=== PATIENT | female | born 1975 | race Caucasian/White ===

== ENCOUNTER 2016-12-25 17:24 | Emergency (ER) | payer BC ==
[~2016-12-25] VITALS: Ht 172.7 cm; Wt 68.0 kg
[~2016-12-25 17:24] MED LIST: AMIT75TA2 PO; CLON1TAB PO; LAMO100 PO; NADO20TA PO; TRAM50TA PO
[2016-12-25 17:26] VITALS: BP 141/64; PULSE 64; RESP 15; TEMP 98.4; O2SAT 99
--- NOTE | 2016-12-25 17:50 | PD ---
Physical Exam Date Seen by Provider: Dec 25, 2016 Time Seen by Provider: 17:49 Narrative 41-year-old female presents the emergency department with sharp right quadrant pain intermittently since Thursday. Patient says the pain is about an 8 out of 10. She denies urinary symptoms. She denies nausea but has no appetite. No vomiting. No diarrhea. Urine is sent to the lab as well as urine test. Vitals are reviewed and patient was awaiting bed placement. Data Data Last Documented VS Vital Signs Date Time Temp Pulse Resp B/P (MAP) Pulse Ox O2 Delivery O2 Flow Rate FiO2 12/25/16 17:26 98.4 64 15 141/64 (89) 99 MDM Medical Record Reviewed: Yes Supervised Visit with SHANICE: Yes Condition: Stable [place] Stephen Dec 25, 2016 17:50
[2016-12-25] MEDS ORDERED: SODIUM CHLOR 0.9% 1000 ML INJ 1,000 ML IV SCH (18:35)
[2016-12-25] MEDS ORDERED: MORPHINE SULFATE 4 MG/ML INJ IV PUSH ONE ×2 (18:45→22:00)
[2016-12-25] MEDS ORDERED: ONDANSETRON HCL 4 MG/2 ML VIAL IVP ONE (18:45)
--- NOTE | 2016-12-25 19:13 | PD ---
HPI Chief Complaint: Abdominal Pain Time Seen by Provider: 18:27 Travel History International Travel<30 days: No Contact w/Intl Traveler<30days: No Traveled to known affect area: No History of Present Illness HPI 41-year-old female that presents to the ED for evaluation of abdominal pain. Patient states that she's had right lower quadrant abdominal pain since Thursday. Patient comes and goes and become sharp. Per patient progressively was getting worse and she's also been having nausea and vomiting. Per patient she cannot keep much down. She denies any history of this in the past. She denies any recent surgeries other than a 4 years ago. She states that her control was recently changed. No fevers chills or sweats. No chest pain or shortness of breath. Per patient the pain is 10 out of 10 when he gets more severe. She has not taken anything for this. She has not seen her doctor for this. She has an allergy to penicillin. Pain stays mainly in the right lower quadrant and does not radiate. Denies any history of kidney stones. No urinary symptoms or bowel movement issues. PFSH Past Medical History Medical History: Denies Significant Hx ?: Not LMP: AMEHIA CONTROL Past Surgical History Section: Yes Social History Alcohol Use: No Tobacco Use: Yes (pack a day) Substance Use: No Allergies-Medications (Allergen,Severity, Reaction): Coded Allergies: penicillin G (Unverified Allergy, Severe, 12/25/16) *MDRO Multi-Drug Resistant Organism (Verified Adverse Reaction, Unknown, ) MRSA (arm-02/21/16) Uncoded Allergies: ADHESIVE TAPE (Allergy, Severe, Rash, 02/03/13) Reported Meds & Prescriptions Reported Meds & Active Scripts Active Zofran (Ondansetron HCl) 4 Mg Tab 4 Mg PO Q6HR PRN Lortab (Hydrocodone-Acetaminophen) 5-325 Mg Tab 1 Tab PO Q6H PRN Clonazepam 1 Mg Tab 1 Mg PO TID Tramadol (Tramadol HCl) 50 Mg Tab 100 Mg PO Q8HR PRN Nadolol 20 Mg Tab 20 Mg PO DAILY Lamictal (Lamotrigine) 100 Mg Tab 50 Mg PO BID Cut pill in half. Take 1/2 tab twice a day Review of Systems Except as stated in HPI: all other systems reviewed are Neg Physical Exam Narrative GENERAL: SKIN: Warm and dry. HEAD: Atraumatic. Normocephalic. EYES: Pupils equal and round. No scleral icterus. No injection or drainage. ENT: No nasal bleeding or discharge. Mucous membranes pink and moist. Tongue is midline. No uvula deviation. NECK: Trachea midline. No JVD. CARDIOVASCULAR: Regular rate and rhythm. No murmurs, S3, S4. RESPIRATORY: No accessory muscle use. Clear to auscultation. Breath sounds equal bilaterally. GASTROINTESTINAL: Abdomen soft, pain with touch in the right lower quadrant especially with deep palpation, nondistended. Hepatic and splenic margins not palpable. MUSCULOSKELETAL: Extremities without clubbing, cyanosis, or edema. No obvious deformities. Full range of motion of the upper and lower extremities bilaterally. 2+ pulses bilaterally. NEUROLOGICAL: Awake and alert. No obvious cranial nerve deficits. Motor grossly within normal limits. Five out of 5 muscle strength in the arms and legs. Normal speech. PSYCHIATRIC: Appropriate mood and affect; insight and judgment normal. Data Data Last Documented VS Vital Signs Date Time Temp Pulse Resp B/P (MAP) Pulse Ox O2 Delivery O2 Flow Rate FiO2 12/25/16 18:26 17 12/25/16 17:26 98.4 64 141/64 (89) 99 Orders Orders Complete Blood Count With Diff (12/25/16 17:50) Comprehensive Metabolic Panel (12/25/16 17:50) Lipase (12/25/16 17:50) Lactic Acid (12/25/16 17:50) Urinalysis - C+S If Indicated (12/25/16 17:50) Ed Poc Ultrasound (12/25/16 17:50) Ct Abd/Pel W Iv Contrast(Rout) (12/25/16 18:35) Iv Access Insert/Monitor (12/25/16 18:35) Morphine Inj (Morphine Inj) (12/25/16 18:45) Ondansetron Inj (Zofran Inj) (12/25/16 18:45) Sodium Chlor 0.9% 1000 Ml Inj (Ns 1000 M (12/25/16 18:35) Iohexol 350 Inj (Omnipaque 350 Inj) (12/25/16 21:17) Ed Urine Pregnancytest Poc (12/25/16 21:47) Morphine Inj (Morphine Inj) (12/25/16 22:00) Labs Laboratory Tests Test 12/25/16 17:53 12/25/16 19:00 Urine Color YELLOW Urine Turbidity CLEAR Urine pH 5.5 Urine Specific [place] 1.010 Urine Protein NEG mg/dL Urine Glucose (UA) NEG mg/dL Urine Ketones NEG mg/dL Urine Occult Blood SMALL Urine Nitrite NEG Urine Bilirubin NEG Urine Urobilinogen LESS THAN 2.0 MG/DL Urine Leukocyte Esterase NEG Urine RBC 3 /hpf Urine WBC LESS THAN 1 /hpf Urine Squamous Epithelial Cells 2 /hpf Urine Bacteria RARE /hpf Microscopic Urinalysis Comment CULT NOT INDICATED White Blood Count 7.1 TH/MM3 Red Blood Count 4.03 MIL/MM3 Hemoglobin 12.9 GM/DL Hematocrit 38.9 % Mean Corpuscular Volume 96.7 FL Mean Corpuscular Hemoglobin 32.0 PG Mean Corpuscular Hemoglobin Concent 33.1 % Red Cell Distribution Width 12.9 % Platelet Count 201 TH/MM3 Mean Platelet Volume 8.6 FL Neutrophils (%) (Auto) 48.8 % Lymphocytes (%) (Auto) 41.5 % Monocytes (%) (Auto) 5.5 % Eosinophils (%) (Auto) 3.2 % Basophils (%) (Auto) 1.0 % Neutrophils # (Auto) 3.5 TH/MM3 Lymphocytes # (Auto) 3.0 TH/MM3 Monocytes # (Auto) 0.4 TH/MM3 Eosinophils # (Auto) 0.2 TH/MM3 Basophils # (Auto) 0.1 TH/MM3 CBC Comment DIFF FINAL Differential Comment Blood Urea Nitrogen 11 MG/DL Creatinine 0.89 MG/DL Random Glucose 78 MG/DL Total Protein 6.2 GM/DL Albumin 3.3 GM/DL Calcium Level 8.6 MG/DL Alkaline Phosphatase 42 U/L Aspartate Amino Transf (AST/SGOT) 11 U/L Alanine Aminotransferase (ALT/SGPT) 18 U/L Total Bilirubin 0.4 MG/DL Sodium Level 138 MEQ/L Potassium Level 4.4 MEQ/L Chloride Level 108 MEQ/L Carbon Dioxide Level 24.9 MEQ/L Anion Gap 5 MEQ/L Estimat Glomerular Filtration Rate 69 ML/MIN Lactic Acid Level 0.7 mmol/L Lipase 94 U/L [facility] Medical Decision Making Medical Screen Exam Complete: Yes Emergency Medical Condition: Yes Medical Record Reviewed: Yes Interpretation(s) CBC & BMP Diagram 12/25/16 19:00 Total Protein 6.2 L, Albumin 3.3 L, Calcium Level 8.6, Alkaline Phosphatase 42 L , Aspartate Amino Transf (AST/SGOT) 11 L, Alanine Aminotransferase (ALT/SGPT) 18 , Total Bilirubin 0.4 Last Impressions Abdomen/Pelvis CT 12/25/16 0081 Signed Impressions: Service Date/Time: December 21:13 - CONCLUSION: Nonspecific hepatomegaly. Mild to moderate thoracolumbar scoliosis. Otherwise negative CT of the abdomen and pelvis. Normal appendix. Marlon Boswell MD UA showed some blood and bacteria Differential Diagnosis Acute abdomen versus appendicitis versus ovarian cyst versus torsion versus UTI versus kidney stone Narrative Course 41-year-old female that presents to the ED for evaluation of right lower quadrant abdominal pain. Patient was properly examined and was found to have signs and symptoms just over lower quadrant pain. Platelet this time. Labs and imaging ordered. Patient was started on IV pain medications and fluids. Labs and imaging showed no sign of acute disease. This time unclear as to the etiology of the symptoms. Case was discussed with my attending Dr. Smith who was made aware of all findings and imaging results with your recommends discharge with close follow-up outpatient. Patient was told this and agrees with plan. Patient was given morphine here with good relief. She will be given a prescription for Lortab and Zofran. She was told that she needs to follow up closely with her PCP preferably by Thursday for further evaluation of this continues. See ED worsening symptoms. Drink plenty of fluids. All questions were answered to the best of my ability. Diagnosis Primary Impression: RLQ abdominal pain Patient Instructions: General Instructions, Narcotic given in the ED Additional Instructions: Take medications as prescribed. Follow-up with PCP. See ED for any worsening symptoms. Do not drink or drive while taking pain medication. Apply ice or heat as needed for pain Med/Other Pt SpecificInfo: Prescription(s) given Scripts Ondansetron (Zofran) 4 Mg Tab 4 MG PO Q6HR Y for NAUSEA OR VOMITING, #14 TAB 0 Refills Prov: Alli Smith MD 12/25/16 Hydrocodone-Acetaminophen (Lortab) 5-325 Mg Tab 1 TAB PO Q6H Y for PAIN, #12 TAB 0 Refills Prov: Alli Smith MD 12/25/16 Disposition: 01 DISCHARGE HOME Condition: Stable [place] Valencia Dec 25, 2016 19:13
[2016-12-25 19:24] LABS: BACTERIA, URINE RARE /hpf; BLOOD, URINE SMALL (NEG); COMMENT (UR) CULT NOT INDICATED; CULTURE IF INDICATED CULT NOT INDICATED; GLUCOSE,URINE NEG (NEG); KETONE, URINE NEG (NEG); NITRITE,URINE NEG (NEG); PH, URINE 5.5 (5.0-8.5); SQUAMOUS EPITHELIAL CELL URINE 2 /hpf (0-5); URINE COLOR YELLOW (YELLW/STRAW)
[2016-12-25 19:25] LABS: AUTOMATED NEUTROPHIL # 3.5 TH/MM3 (1.8-7.7); BASOPHIL # 0.1 TH/MM3 (0-0.2); EOSINOPHIL # 0.2 TH/MM3 (0-0.4); EOSINOPHIL % 3.2 % (0.0-4.0); HEMATOCRIT 38.9 % (35.0-46.0); HEMO FLAGS DIFF FINAL; LYMPH % 41.5 % (9.0-44.0); MEAN CELL VOLUME 96.7 FL (80.0-100.0); MEAN CORPUSCULAR HGB CONC 33.1 % (32.0-36.0); MONO % 5.5 % (0.0-8.0); NEUT % 48.8 % (16.0-70.0); PLATELET COUNT 201 TH/MM3 (150-450); RED BLOOD COUNT 4.03 MIL/MM3 (4.00-5.30); RED CELL DISTRIBUTION WIDTH 12.9 % (11.6-17.2); WHITE BLOOD COUNT 7.1 TH/MM3 (4.0-11.0)
[2016-12-25 20:17] LABS: ANION GAP 5 MEQ/L (5-15); AST (GOT) 11 U/L (15-37); BICARBONATE 24.9 MEQ/L (21.0-32.0); BLOOD UREA NITROGEN 11 MG/DL (7-18); CHLORIDE 108 MEQ/L (98-107); GLOMERULAR FILTRATION RATE 69 ML/MIN (>89); POTASSIUM 4.4 MEQ/L (3.5-5.1); SODIUM (NA) 138 MEQ/L (136-145)
[2016-12-25 20:24] LABS: ALKALINE PHOSPHATASE 42 U/L (45-117); ALT (GPT) 18 U/L (10-53); TOTAL BILIRUBIN ADULT 0.4 MG/DL (0.2-1.0)
[2016-12-25] MEDS ORDERED: IOHEXOL 350 MG/ML 10 ML VIAL (for RAD DIAG) IVCONTRAST ONE (21:17)
--- NOTE | 2016-12-25 21:42 | RADRPT ---
EXAM DATE/TIME: 12/25/2016 21:13 [facility] COMPARISON: No previous studies available for comparison. INDICATIONS : Right lower abdominal pain with vomiting. IV CONTRAST: 95 cc Omnipaque 350 (iohexol) IV ORAL CONTRAST: No oral contrast ingested. RADIATION DOSE: 6.13 CTDIvol (mGy) MEDICAL HISTORY : None SURGICAL HISTORY : section. ENCOUNTER: Initial ACUITY: 3 days PAIN SCALE: 8/10 LOCATION: Right lower quadrant TECHNIQUE: Volumetric scanning of the abdomen and pelvis was performed. Using automated exposure control and ad justment of the mA and/or kV according to patient size, radiation dose was kept as low as reasonably achievable to obtain optimal diagnostic quality images. DICOM format image data is available electro nically for review and comparison. FINDINGS: LOWER LUNGS: The visualized lower lungs are clear. LIVER: Homogeneous density without lesion. Liver measures 23 cm craniocaudal. There is no dilation of the b iliary tree. No calcified gallstones. SPLEEN: Normal size without lesion. PANCREAS: Within normal limits. KIDNEYS: Normal in size and shape. There is no mass, stone or hydronephrosis. ADRENAL GLANDS: Within normal limits. VASCULAR: There is no aortic aneurysm. BOWEL/MESENTERY: The stomach, small bowel, and colon demonstrate no acute abnormality. There is no free intraperitone al air or fluid. The appendix is well-visualized, normal. ABDOMINAL WALL: Within normal limits. RETROPERITONEUM: There is no lymphadenopathy. BLADDER: No wall thickening or mass. REPRODUCTIVE: Within normal limits. INGUINAL: There is no lymphadenopathy or hernia. MUSCULOSKELETAL: No acute bony abnormality demonstrated. There is mild to moderate S-shaped thoracolumbar curvature. CONCLUSION: Nonspecific hepatomegaly. Mild to moderate thoracolumbar scoliosis. Otherwise negative CT of the abdo men and pelvis. Normal appendix. Marlon Boswell MD on December 25, 2016 at 21:38 Board Certified Radiologist. This report was verified electronically.
[2016-12-25] MEDS ORDERED: ZOFR4TAB PO (21:56)
[2016-12-25] MEDS ORDERED: HYDR-3533 PO (21:56)
[2016-12-30] MEDS ORDERED: DEPO150I IM (15:27)
[2016-12-30] MEDS ORDERED: ZOFR4TAB PO (15:28)
[2016-12-30] MEDS ORDERED: HYDR-3533 PO (15:34)
[2016-12-30] MEDS ORDERED: TRAM50TA PO (15:34)
[2017-01-06] MEDS ORDERED: METR500T10 PO (17:29)
[2017-01-06] MEDS ORDERED: CIPR-9 PO (17:29)
== END 2016-12-25 22:08 | disposition home or self-care (01) ==
LOC: NEPE 17:24
DX: R10.31 Right lower quadrant pain (principal); F17.210 Nicotine dependence, cigarettes, uncomplicated
CPT/HCPCS: 74177; 80053; 81001; 83605; 83690; 84703; 85025; 96361; 96374; 96375; 96376; 99285; J2270; J2405; J7030; Q9967

== ENCOUNTER 2017-05-01 12:42 | Observation (INO) | payer BC ==
[~2017-05-01 12:42] MED LIST changes: -AMIT75TA2 PO; +DEPO150I IM; +PROP60CA PO; +ZOFR4TAB PO
[2017-05-01 12:45] VITALS: BP 110/60; PULSE 51; RESP 14; TEMP 97.7; O2SAT 100
[2017-05-01] MEDS ORDERED: ASPIRIN 81 MG CHEW TAB PO ONE (13:00)
--- NOTE | 2017-05-01 13:29 | RADRPT ---
EXAM DATE/TIME: 05/01/2017 13:10 [facility] COMPARISON: No previous studies available for comparison. INDICATIONS : Short of breath and chest pain for 5 days, smoker, some coughing MEDICAL HISTORY : None. SURGICAL HISTORY : section. ENCOUNTER: Initial ACUITY: 4 - 6 days PAIN SCORE: 6/10 LOCATION: Bilateral chest FINDINGS: PA and lateral views of the chest demonstrate the lungs to be symmetrically aerated without evidence of mass, infiltrate or effusion. The cardiomediastinal contours are unremarkable. Osseous structure s are intact. CONCLUSION: No acute disease. Antonio Olson MD FACR on May 01, 2017 at 13:27 Board Certified Radiologist. This report was verified electronically.
[2017-05-01 14:04] LABS: AUTOMATED NEUTROPHIL # 5.4 TH/MM3 (1.8-7.7); BASOPHIL # 0.1 TH/MM3 (0-0.2); BASOPHIL % 0.8 % (0.0-2.0); EOSINOPHIL # 0.3 TH/MM3 (0-0.4); EOSINOPHIL % 3.3 % (0.0-4.0); HEMATOCRIT 42.5 % (35.0-46.0); HEMOGLOBIN 14.6 GM/DL (11.6-15.3); LYMPH % 35.6 % (9.0-44.0); LYMPHOCYTE # 3.4 TH/MM3 (1.0-4.8); MEAN CELL VOLUME 96.7 FL (80.0-100.0); MEAN CORPUSCULAR HEMOGLOBIN 33.2 PG (27.0-34.0); MEAN CORPUSCULAR HGB CONC 34.3 % (32.0-36.0); MEAN PLATELET VOLUME 8.4 FL (7.0-11.0); MONO % 4.5 % (0.0-8.0); MONOCYTE # 0.4 TH/MM3 (0-0.9); NEUT % 55.8 % (16.0-70.0); PLATELET COUNT 215 TH/MM3 (150-450); RED CELL DISTRIBUTION WIDTH 13.2 % (11.6-17.2); WHITE BLOOD COUNT 9.6 TH/MM3 (4.0-11.0)
[2017-05-01 14:16] LABS: INTERNATIONAL NORMALIZED RATIO 1.1 RATIO; PROTHROMBIN TIME - PATIENT 11.1 SEC (9.8-11.6)
[2017-05-01 14:26] LABS: ALBUMIN 4.1 GM/DL (3.4-5.0); AST (GOT) 13 U/L (15-37); BICARBONATE 26.5 MEQ/L (21.0-32.0); BLOOD UREA NITROGEN 11 MG/DL (7-18); CALCIUM 8.9 MG/DL (8.5-10.1); CHLORIDE 109 MEQ/L (98-107); CREATININE 0.98 MG/DL (0.50-1.00); GLOMERULAR FILTRATION RATE 62 ML/MIN (>89); GLUCOSE,RANDOM 60 MG/DL (74-106); MAGNESIUM 2.1 MG/DL (1.5-2.5); SODIUM (NA) 140 MEQ/L (136-145)
[2017-05-01 14:28] LABS: ALT (GPT) 15 U/L (10-53)
[2017-05-01 14:32] LABS: ALKALINE PHOSPHATASE 61 U/L (45-117); TOTAL BILIRUBIN ADULT 0.5 MG/DL (0.2-1.0); TOTAL PROTEIN 7.3 GM/DL (6.4-8.2); TROPONIN I LESS THAN 0.02 NG/ML (0.02-0.05)
--- NOTE | 2017-05-01 14:47 | PD ---
HPI Chief Complaint: Chest Pain Time Seen by Provider: 14:36 Travel History International Travel<30 days: No Contact w/Intl Traveler<30days: No Traveled to known affect area: No History of Present Illness HPI C/O 4 DAYS OF DIZZINESS, CHEST PRESSURE (NONRADIATING, 5/10, MIDSTERNAL, ), AND PALPITATIONS (DESCRIBED SLOW, POUNDS, NO FAST SENSATION AT ALL) APPARENTLY THESE SYMPTOMS HAVE BEEN ONGOING SINCE STARTED ON PROPANOLOL ER 60MG DAILY A MIGRAINE PROPHYLAXIS BY HER PCP. PFSH Past Medical History Bipolar Disorder: Yes Diabetes: No Migraines: Yes Tetanus Vaccination: > 5 Years Influenza Vaccination: No ?: Not LMP: 2 years ago on depo Past Surgical History Section: Yes (X2) Social History Alcohol Use: No Tobacco Use: Yes (pack a day) Substance Use: No Allergies-Medications (Allergen,Severity, Reaction): Coded Allergies: penicillin G (Unverified Allergy, Severe, 05/01/17) *MDRO Multi-Drug Resistant Organism (Verified Adverse Reaction, Unknown, ) MRSA (arm-02/21/16) Uncoded Allergies: ADHESIVE TAPE (Allergy, Severe, Rash, 02/03/13) Reported Meds & Prescriptions Reported Meds & Active Scripts Active Propranolol ER 24 HR (Propranolol HCl) 60 Mg Cap 60 Mg PO DAILY Clonazepam 1 Mg Tab 1 Mg PO TID Tramadol (Tramadol HCl) 50 Mg Tab 100 Mg PO Q8HR PRN Lamictal (Lamotrigine) 100 Mg Tab 50 Mg PO BID Cut pill in half. Take 1/2 tab twice a day Depo-Provera Inj (Medroxyprogesterone Inj) 150 Mg/Ml Inj 150 Mg IM Q90D Review of Systems Except as stated in HPI: all other systems reviewed are Neg General / Constitutional: No: Fever Eyes: No: Visual changes HENT: Positive: Lightheadedness Cardiovascular: Positive: Palpitations Respiratory: No: Shortness of Breath Gastrointestinal: No: Abdominal Pain Genitourinary: No: Dysuria Musculoskeletal: No: Pain Skin: No Rash Neurologic: Positive: Dizziness Psychiatric: No: Depression Endocrine: No: Polydipsia Hematologic/Lymphatic: No: Easy Bruising Physical Exam Narrative GENERAL: SKIN: Warm and dry. HEAD: Atraumatic. Normocephalic. EYES: Pupils equal and round. No scleral icterus. No injection or drainage. ENT: No nasal bleeding or discharge. Mucous membranes pink and moist. NECK: Trachea midline. No JVD. CARDIOVASCULAR: Regular rhythm, BRADYCARDIC AROUND 50'S RESPIRATORY: No accessory muscle use. Clear to auscultation. Breath sounds equal bilaterally. GASTROINTESTINAL: Abdomen soft, non-tender, nondistended. Hepatic and splenic margins not palpable. MUSCULOSKELETAL: Extremities without clubbing, cyanosis, or edema. No obvious deformities. NEUROLOGICAL: Awake and alert. No obvious cranial nerve deficits. Motor grossly within normal limits. Five out of 5 muscle strength in the arms and legs. Normal speech. PSYCHIATRIC: Appropriate mood and affect; insight and judgment normal. Data Data Last Documented VS Vital Signs Date Time Temp Pulse Resp B/P (MAP) Pulse Ox O2 Delivery O2 Flow Rate FiO2 05/01/17 14:00 62 18 99 Room Air 05/01/17 12:45 97.7 110/60 (77) Orders Orders Electrocardiogram (05/01/17 12:59) Ckmb (Isoenzyme) Profile (05/01/17 12:59) Complete Blood Count With Diff (05/01/17 12:59) Comprehensive Metabolic Panel (05/01/17 12:59) Magnesium (Mg) (05/01/17 12:59) Prothrombin Time / Inr (Pt) (05/01/17 12:59) Act Partial Throm Time (Ptt) (05/01/17 12:59) Troponin I (05/01/17 12:59) Aspirin Chew (Aspirin Chew) (05/01/17 13:00) Chest, Pa & Lat (05/01/17 12:59) Glucagon Inj (Glucagon Inj) (05/01/17 15:00) Morphine Inj (Morphine Inj) (05/01/17 15:00) Labs Laboratory Tests Test 05/01/17 13:34 White Blood Count 9.6 TH/MM3 Red Blood Count 4.40 MIL/MM3 Hemoglobin 14.6 GM/DL Hematocrit 42.5 % Mean Corpuscular Volume 96.7 FL Mean Corpuscular Hemoglobin 33.2 PG Mean Corpuscular Hemoglobin Concent 34.3 % Red Cell Distribution Width 13.2 % Platelet Count 215 TH/MM3 Mean Platelet Volume 8.4 FL Neutrophils (%) (Auto) 55.8 % Lymphocytes (%) (Auto) 35.6 % Monocytes (%) (Auto) 4.5 % Eosinophils (%) (Auto) 3.3 % Basophils (%) (Auto) 0.8 % Neutrophils # (Auto) 5.4 TH/MM3 Lymphocytes # (Auto) 3.4 TH/MM3 Monocytes # (Auto) 0.4 TH/MM3 Eosinophils # (Auto) 0.3 TH/MM3 Basophils # (Auto) 0.1 TH/MM3 CBC Comment DIFF FINAL Differential Comment Prothrombin Time 11.1 SEC Prothromb Time International Ratio 1.1 RATIO Activated Partial Thromboplast Time 26.9 SEC Blood Urea Nitrogen 11 MG/DL Creatinine 0.98 MG/DL Random Glucose 60 MG/DL Total Protein 7.3 GM/DL Albumin 4.1 GM/DL Calcium Level 8.9 MG/DL Magnesium Level 2.1 MG/DL Alkaline Phosphatase 61 U/L Aspartate Amino Transf (AST/SGOT) 13 U/L Alanine Aminotransferase (ALT/SGPT) 15 U/L Total Bilirubin 0.5 MG/DL Sodium Level 140 MEQ/L Potassium Level 3.7 MEQ/L Chloride Level 109 MEQ/L Carbon Dioxide Level 26.5 MEQ/L Anion Gap 5 MEQ/L Estimat Glomerular Filtration Rate 62 ML/MIN Total Creatine Kinase 87 U/L Troponin I LESS THAN 0.02 NG/ML MDM Medical Decision Making Medical Screen Exam Complete: Yes Emergency Medical Condition: Yes Medical Record Reviewed: Yes Interpretation(s) PULSE OX: EXCELLENT PLETH WAVE, 98% ON RA WHICH IS WITHIN NORMAL LIMITS. EKG: SINUS BRADYCARDIA 51, NORMAL INTERVALS, NONSPEC STT CHANGES...NO STEMI PATTERN Differential Diagnosis DYSRHYTHMIA V STEMI V ANEMIA V ELECTROLYTE ABNL Narrative Course HER PCP SENT PATIENT FOR OBSERVATION Diagnosis Primary Impression: LIGHTHEADE DUE TO BRADYCARDIA Admitting Information Admitting Physician Requests: Observation Nic Maldonado MD May 01, 2017 14:47
[2017-05-01] MEDS ORDERED: GLUCAGON 1 MG/ML VIAL IV PUSH ONE ×2 (15:00→16:15)
[2017-05-01] MEDS ORDERED: MORPHINE SULFATE 2 MG/ML INJ IV PUSH ONE (15:00)
[2017-05-01 15:45] VITALS: BP 107/62; PULSE 49; RESP 18; O2SAT 99
[2017-05-01] MEDS ORDERED: SODIUM CHLORIDE 0.9% FLUSH 10 ML FLUSH IV FLUSH PRN ×2 (15:45→16:15)
--- NOTE | 2017-05-01 15:49 | HHI.HP ---
[facility] Service Family Medicine Primary Care Physician Shahana Landaverde , R3 MD Renita Admission Diagnosis SYMPTOMATIC BRADYCARDIA DUE TO BETA CESAR USE Diagnoses: International Travel<30 Days: No Contact w/Intl Traveler<30days: No Known Affected Area: No History of Present Illness Patient is a 41-year-old female who is a patient of mine. On 04/11 with 18 patient was transitioned from nadolol to propranolol for migraine prophylaxis. Patient started medication on 04/25 without symptoms but then on 04/27 she developed substernal crushing chest pain and SOB. This chest pain radiated to the right shoulder and was persistent throughout the entire day. Shortness of breath was also persistent throughout the entire day. She then presented to [facility] ED and was diagnosed with costochondritis. She continued on propranolol at that visit. I was then notified about patient's symptoms and call patient back on 04/30 reported that she continued to have symptoms and her pulse was between 60 and 64. I instructed patient to stop medication immediately (04/30/2017). At that time she had already made an appointment in our same day clinic for 05/01 and I encouraged pt to keep that appt and/or go to the ED again if her symptoms worsen. Patient was then seen by Dr. Ash in clinic who reported that patient continued to have substernal, crushing chest pain. Counseled patient to go to the ED with worsening symptoms since being in the ED she continues to have chest pain and SOB but symptoms have improved with administration of morphine. Patient has also reported increase in fatigue, dizziness, near syncopal episodes without syncope, slowed thought processes. Review of Systems Constitutional: COMPLAINS OF: Dizziness Endocrine: DENIES: Polyuria Eyes: DENIES: Double Vision Ears, nose, mouth, throat: DENIES: Running Nose Respiratory: COMPLAINS OF: Cough, Shortness of breath Cardiovascular: COMPLAINS OF: Chest pain, Dyspnea on Exertion, DENIES: Syncope Gastrointestinal: DENIES: Abdominal pain Genitourinary: DENIES: Dysuria Integumentary: DENIES: Rash Neurologic: DENIES: Seizures Past Family Social History Past Medical History Bipolar Disorder TMJ- causes headaches Chronic pain Migraines Past Surgical History C-sections x 2 96 and 2013 Reported Medications Reported Meds & Active Scripts Active Clonazepam 1 Mg Tab 1 Mg PO TID Tramadol (Tramadol HCl) 50 Mg Tab 100 Mg PO Q8HR PRN Lamictal (Lamotrigine) 100 Mg Tab 50 Mg PO BID Cut pill in half. Take 1/2 tab twice a day Depo-Provera Inj (Medroxyprogesterone Inj) 150 Mg/Ml Inj 150 Mg IM Q90D Allergies: Coded Allergies: penicillin G (Unverified Allergy, Severe, 05/01/17) *MDRO Multi-Drug Resistant Organism (Verified Adverse Reaction, Unknown, ) MRSA (arm-02/21/16) Uncoded Allergies: ADHESIVE TAPE (Allergy, Severe, Rash, 02/03/13) Family History Mother: Alcohol abuse, bipolar, HTN, uterine cancer Father: throat cancer Social History Smokes 1-1.5ppd x 20+ years Denies any alcohol use Smokes marijuana occasionally, once every couple of weeks, denies any other illicit drugs Physical Exam Vital Signs Vital Signs Date Time Temp Pulse Resp B/P (MAP) Pulse Ox O2 Delivery O2 Flow Rate FiO2 05/01/17 15:45 49 18 107/62 (77) 99 Room Air 05/01/17 14:00 62 18 99 Room Air 05/01/17 12:45 97.7 51 14 110/60 (77) 100 Physical Exam GENERAL: This is a well-nourished, well-developed patient, in no apparent distress. SKIN: No rashes, ecchymoses or lesions. Cool and dry. EYES: Pupils equal round and reactive. Extraocular motions intact. No scleral icterus. No injection or drainage. ENT: Throat without erythema, tonsillar hypertrophy or exudate. Uvula midline. Airway patent. CARDIOVASCULAR: Bradycardia but with normal rhythm without murmurs, gallops, or rubs. RESPIRATORY: Clear to auscultation. Breath sounds equal bilaterally. No wheezes , rales, or rhonchi. Speaking in complete sentences without issues. GASTROINTESTINAL: Abdomen soft, non-tender, nondistended. No hepato-splenomegaly , or palpable masses. No guarding. MUSCULOSKELETAL: Extremities without clubbing, cyanosis, or edema. No calf tenderness. NEUROLOGICAL: Awake and alert. Motor and sensory grossly within normal limits. Five out of 5 muscle strength in all muscle groups. Normal speech. Laboratory Laboratory Tests Test 05/01/17 13:34 White Blood Count 9.6 Red Blood Count 4.40 Hemoglobin 14.6 Hematocrit 42.5 Mean Corpuscular Volume 96.7 Mean Corpuscular Hemoglobin 33.2 Mean Corpuscular Hemoglobin Concent 34.3 Red Cell Distribution Width 13.2 Platelet Count 215 Mean Platelet Volume 8.4 Neutrophils (%) (Auto) 55.8 Lymphocytes (%) (Auto) 35.6 Monocytes (%) (Auto) 4.5 Eosinophils (%) (Auto) 3.3 Basophils (%) (Auto) 0.8 Neutrophils # (Auto) 5.4 Lymphocytes # (Auto) 3.4 Monocytes # (Auto) 0.4 Eosinophils # (Auto) 0.3 Basophils # (Auto) 0.1 CBC Comment DIFF FINAL Differential Comment Prothrombin Time 11.1 Prothromb Time International Ratio 1.1 Activated Partial Thromboplast Time 26.9 Blood Urea Nitrogen 11 Creatinine 0.98 Random Glucose 60 Total Protein 7.3 Albumin 4.1 Calcium Level 8.9 Magnesium Level 2.1 Alkaline Phosphatase 61 Aspartate Amino Transf (AST/SGOT) 13 Alanine Aminotransferase (ALT/SGPT) 15 Total Bilirubin 0.5 Sodium Level 140 Potassium Level 3.7 Chloride Level 109 Carbon Dioxide Level 26.5 Anion Gap 5 Estimat Glomerular Filtration Rate 62 Total Creatine Kinase 87 Troponin I LESS THAN 0.02 Result Diagram: 05/01/17 1334 05/01/17 1334 Imaging Last Impressions Chest X-Ray 05/01/17 1259 Signed Impressions: Service Date/Time: Monday, May 01, 2017 13:10 - CONCLUSION: No acute disease. Antonio Olson MD FACR [place] VTE Risk Assessment Caprini VTE Risk Assessment: No/Low Risk (score <= 1) Caprini Risk Assessment Model Point Value = 1 Point Value = 2 Point Value = 3 Point Value = 5 Age 41-60 Minor surgery BMI > 25 kg/m2 Swollen legs Varicose veins or History of unexplained or recurrent spontaneous Oral contraceptives or hormone replacement Sepsis (< 1 month) Serious lung disease, including pneumonia (< 1 month) Abnormal pulmonary function Acute myocardial infarction Congestive heart failure (< 1 month) History of inflammatory bowel disease Medical patient at bed rest Age 61-74 Arthroscopic surgery Major open surgery (> 45 min) Laparoscopic surgery (> 45 min) Malignancy Confined to bed (> 72 hours) Immobilizing plaster cast Central venous access Age >= 75 History of VTE Family history of VTE Factor V Leiden Prothrombin [id number] Lupus anticoagulant Anticardiolipin antibodies Elevated serum homocysteine Heparin-induced thrombocytopenia Other congenital or acquired thrombophilia Stroke (< 1 month) Elective arthroplasty Hip, pelvis, or leg fracture Acute spinal cord injury (< 1 month) Prophylaxis Regimen Total Risk Factor Score Risk Level Prophylaxis Regimen 0-1 Low Early ambulation 2 Moderate Order ONE of the following: *Sequential Compression Device (SCD) *Heparin 5000 units SQ BID 3-4 Higher Order ONE of the following medications: *Heparin 5000 units SQ TID *Enoxaparin/Lovenox 40 mg SQ daily (WT < 150 kg, CrCl > 30 mL/min) *Enoxaparin/Lovenox 30 mg SQ daily (WT < 150 kg, CrCl > 10-29 mL/min) *Enoxaparin/Lovenox 30 mg SQ BID (WT < 150 kg, CrCl > 30 mL/min) AND/OR *Sequential Compression Device (SCD) 5 or more Highest Order ONE of the following medications: *Heparin 5000 units SQ TID (Preferred with Epidurals) *Enoxaparin/Lovenox 40 mg SQ daily (WT < 150 kg, CrCl > 30 mL/min) *Enoxaparin/Lovenox 30 mg SQ daily (WT < 150 kg, CrCl > 10-29 mL/min) *Enoxaparin/Lovenox 30 mg SQ BID (WT < 150 kg, CrCl > 30 mL/min) AND *Sequential Compression Device (SCD) Assessment and Plan Assessment and Plan Patient is a 41yo female who presented with chest pain and SOB. Admitted for symptomatic bradycardia due to recent beta cesar use. Code Status Full Discussed Condition With Dr. López Problem List: (1) Propranolol adverse reaction ICD Codes: T44.7X5A - Adverse effect of beta-adrenoreceptor antagonists, initial encounter Plan: Patient with severe symptoms of Chest pain and SOB since starting propanolol. Pulse found to be as low at 43 while in the ED. Last dose was 2017. Received glucagon x1 in the ED. Pain control has improved with morphine. Pt in no acute respiratory distress. Blood pressure at patient's baseline. No neurological changes. Concern that propanolol may be effect the lungs more severely than the cardiac system especially since patient has a smoking history. -DDimer ordered -cardiac telemetry -CXR unremarkable. -EKG unremarkable except for sinus bradycardia. However, p waves are enlarged and flipped in V1 * echo ordered for further evaluation. May be postponed to outpatient if patient improves significantly -Troponin x1 negative, repeat x1. Low cardiac concern especially since symptoms have been present x1 week and are continuous -accuchecks due to low glucose on admission Medications * Repeat glucagon x1. Infusion not indicated at this time. * Albuterol and Duo nebs * Morphine for chest pain (2) Sinus bradycardia ICD Codes: R00.1 - Bradycardia, unspecified Plan: No indicated for pacer at this time. See more detailed plan above. (3) Bipolar disorder ICD Codes: F31.9 - Bipolar disorder, unspecified Status: Chronic Plan: Continue home medications, Lamictal and Klonopin. (4) Nutrition, metabolism, and development symptoms ICD Codes: R63.8 - Other symptoms and signs concerning food and fluid intake Plan: Diet: Regular Fluids: PO hydration Electrolytes: unremarkable, continue to monitor DVT PPX: lovenox GI PPX: not indicated Shahana Maravilla MD, R3 May 01, 2017 15:49
[2017-05-01] MEDS ORDERED: traMADol HCL 50 MG TAB PO PRN (16:00)
[2017-05-01] MEDS ORDERED: SENNOSIDES 8.6 MG TAB PO PRN (16:15)
[2017-05-01] MEDS ORDERED: LACTULOSE SYRUP 20 GM/30 ML CUP PO PRN (16:15)
[2017-05-01] MEDS ORDERED: NALOXONE HCL 0.4 MG/ML AMP IV PUSH PRN (16:15)
[2017-05-01] MEDS ORDERED: MORPHINE SULFATE 2 MG/ML INJ IV PUSH PRN (16:15)
[2017-05-01] MEDS ORDERED: RESP: ALBUTEROL 2.5 MG/3 ML NEB (PRN) INH (16:15)
[2017-05-01] MEDS ORDERED: BISACODYL 10 MG SUPP RECTAL PRN (16:15)
[2017-05-01] MEDS ORDERED: MAGNESIUM HYDROXIDE SUSP 30 ML CUP PO PRN (16:15)
[2017-05-01] MEDS ORDERED: ONDANSETRON HCL 4 MG/2 ML VIAL IVP PRN (16:15)
[2017-05-01] MEDS ORDERED: PILL SPLITTER OTHER PRN (16:30)
[2017-05-01] MEDS ORDERED: ENOXAPARIN SODIUM 40 MG/0.4 ML SYRINGE SQ SCH (17:00)
[2017-05-01 17:43] VITALS: BP 103/62; PULSE 53; RESP 18; TEMP 98.5; O2SAT 97
[2017-05-01] MEDS ORDERED: clonazePAM 1 MG TAB PO SCH (18:00)
[2017-05-01] MEDS ORDERED: clonazePAM 1 MG TAB PO PRN (18:00)
[2017-05-01] MEDS ORDERED: ENALAPRILAT 1.25 MG/ML VIAL IV PUSH PRN (18:45)
[2017-05-01 20:24] VITALS: BP 112/53; PULSE 51; RESP 24; TEMP 97.9; O2SAT 100
[2017-05-01] MEDS: DOCUSATE SODIUM 50 MG/SENNA 8.6 MG TAB PO SCH (21:00)
[2017-05-01] MEDS: SODIUM CHLORIDE 0.9% FLUSH 10 ML FLUSH IV FLUSH SCH ×2 (21:00→21:47)
[2017-05-01] MEDS: RESP: ALBUTEROL 2.5 MG/IPRATROPIUM 0.5 MG NEB (SCH) INH (21:17)
[2017-05-01 21:18] VITALS: O2SAT 99
[2017-05-01] MEDS: lamoTRIgine 100 MG TAB PO SCH (21:47)
[2017-05-01 23:37] VITALS: BP 114/60; PULSE 49; RESP 20; TEMP 98.5; O2SAT 100
[2017-05-02] MEDS: RESP: ALBUTEROL 2.5 MG/IPRATROPIUM 0.5 MG NEB (SCH) INH ×2 (02:59→08:29)
[2017-05-02 03:06] VITALS: BP 90/55; PULSE 53; RESP 18; TEMP 98.7; O2SAT 97
[2017-05-02 07:21] VITALS: BP 100/56; PULSE 56; RESP 17; TEMP 97.9; O2SAT 100
[2017-05-02 07:57] LABS: BICARBONATE 24.1 MEQ/L (21.0-32.0); CALCIUM 8.5 MG/DL (8.5-10.1); CREATININE 0.87 MG/DL (0.50-1.00)
[2017-05-02] MEDS: SODIUM CHLORIDE 0.9% FLUSH 10 ML FLUSH IV FLUSH SCH ×2 (09:00→10:34)
--- NOTE | 2017-05-02 09:44 | HHI.DCPOC ---
Discharge Care Plan Diagnosis: (1) Propranolol adverse reaction (2) Sinus bradycardia (3) Chest pain Goals to Promote Your Health * To prevent worsening of your condition and complications * To maintain your health at the optimal level Directions to Meet Your Goals Take your medications as prescribed Follow your dietary instruction Follow activity as directed Keep your appointments as scheduled Take your immunizations and boosters as scheduled If your symptoms worsen call your PCP, if no PCP go to Urgent Care Center or Emergency Room Smoking is Dangerous to Your Health. Avoid second hand smoke Call the 24-hour hour crisis hotline for domestic abuse at Shahana Maravilla MD, R3 May 02, 2017 09:44
[2017-05-02] MEDS: DOCUSATE SODIUM 50 MG/SENNA 8.6 MG TAB PO SCH (10:32)
[2017-05-02] MEDS: lamoTRIgine 100 MG TAB PO SCH (10:33)
--- NOTE | 2017-05-02 11:00 | HHI.HP ---
[facility] Service Family Medicine Primary Care Physician Shahana Landaverde , R3 MD Renita Admission Diagnosis SYMPTOMATIC BRADYCARDIA DUE TO BETA CESAR USE Diagnoses: (1) Propranolol adverse reaction Diagnosis: Principal (2) Sinus bradycardia Diagnosis: Principal (3) Bipolar disorder (4) Nutrition, metabolism, and development symptoms Diagnosis: Principal International Travel<30 Days: No Contact w/Intl Traveler<30days: No Known Affected Area: No History of Present Illness Ms Zacarias is a 41-year-old female who was transitioned from nadolol to propranolol for migraine prophylaxis. Patient started medication on 04/25 without symptoms but then on 04/27 she developed substernal crushing chest pain and SOB. This chest pain radiated to the right shoulder and was persistent throughout the entire day. Shortness of breath was also persistent throughout the entire day. She then presented to [facility] ED and was diagnosed with costochondritis. She continued on propranolol at that visit. Dr Tima Mendoza was then notified about patient's symptoms and called patient back on . Ms Zacarias reported that she continued to have symptoms and her pulse was between [address] instructed patient to stop medication immediately (). At that time she had already made an appointment in our same day clinic for 05/01 and I encouraged pt to keep that appt and/or go to the ED again if her symptoms worsen. Patient was then seen by Dr. Ash in clinic who reported that patient continued to have substernal, crushing chest pain. Counseled patient to go to the ED with worsening symptoms since being in the ED she continues to have chest pain and SOB but symptoms have improved with administration of morphine. Patient has also reported increase in fatigue, dizziness, near syncopal episodes without syncope, slowed thought processes. Ms Zacarias reported many typical side effects of beta blockers including fatigue. "I took my medicine at night and felt hung over the next morning." She was most concerned about her chest sxs which presented "like a panic attack" which she has had before.. She described this as SOB and tightness with the chest pain. She tried measures which normally worked for panic attacks like deep breathing but the sxs did not resolve. Her fiance was with her at the time and told her that she should use her inhaler as he saw her having breathing problems. However , she did not use this. She described the chest pain as "I felt like my chest was going to implode". She does have a history of asthma/allergy as a child but has not had much in the way of breathing problems for a very long time. However , she still has an inhaler that she carries with her. Today, she feels great and wishes to go home. She has no bradycardia or breathing problems at this time nor chest sxs at all. She will follow up with Dr Maravilla on Thursday. Review of Systems Constitutional: COMPLAINS OF: Fatigue, Dizziness, DENIES: Diaphoretic episodes , Fever, Weight gain, Weight loss, Chills, Change in appetite, Night Sweats Ears, nose, mouth, throat: DENIES: Throat pain Respiratory: COMPLAINS OF: Cough (rare), Shortness of breath, DENIES: Apneas, Snoring, Wheezing, Hemoptysis, Sputum production Cardiovascular: COMPLAINS OF: Chest pain, DENIES: Palpitations, Syncope, Lower Extremity Edema Other Constitutional: COMPLAINS OF: Dizziness Endocrine: DENIES: Polyuria Eyes: DENIES: Double Vision Ears, nose, mouth, throat: DENIES: Running Nose Respiratory: COMPLAINS OF: Cough, Shortness of breath Cardiovascular: COMPLAINS OF: Chest pain, Dyspnea on Exertion, DENIES: Syncope Gastrointestinal: DENIES: Abdominal pain Genitourinary: DENIES: Dysuria Integumentary: DENIES: Rash Neurologic: DENIES: Seizures Past Family Social History Past Medical History Bipolar Disorder TMJ- causes headaches Chronic pain Migraines Past Surgical History C-sections x 2 and 2012 Allergies: Coded Allergies: penicillin G (Unverified Allergy, Severe, 05/01/17) *MDRO Multi-Drug Resistant Organism (Verified Adverse Reaction, Unknown, ) MRSA (arm-02/21/16) Uncoded Allergies: ADHESIVE TAPE (Allergy, Severe, Rash, 02/03/13) propanolol (Adverse Reaction, Intermediate, SOB bradycardia, 05/02/17) Family History Mother: Alcohol abuse, bipolar, HTN, uterine cancer Father: throat cancer Social History Smokes 1-1.5ppd x 20+ years Denies any alcohol use Smokes marijuana occasionally, once every couple of weeks, denies any other illicit drugs her 21 year old is paralyzed and 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 also with 4 year old works at [employer] engaged to be Physical Exam Vital Signs Vital Signs Date Time Temp Pulse Resp B/P (MAP) Pulse Ox O2 Delivery O2 Flow Rate FiO2 05/02/17 07:21 97.9 56 17 100/56 (71) 100 05/02/17 03:06 98.7 53 18 90/55 (67) 97 05/01/17 23:37 98.5 49 20 114/60 (78) 100 05/01/17 21:18 99 05/01/17 20:24 97.9 51 24 112/53 (72) 100 05/01/17 17:44 05/01/17 17:43 98.5 53 18 103/62 (76) 97 05/01/17 15:45 49 18 107/62 (77) 99 Room Air 05/01/17 14:00 62 18 99 Room Air 05/01/17 12:45 97.7 51 14 110/60 (77) 100 Physical Exam GENERAL: This is a well-nourished, well-developed patient, in no apparent distress. talkative and having no current problems SKIN: No rashes, ecchymoses or lesions. Cool and dry. EYES: Pupils equal round and reactive. Extraocular motions intact. No scleral icterus. No injection or drainage. ENT: Airway patent. CARDIOVASCULAR: originally slight bradycardia but with normal rhythm without murmurs, gallops, or rubs. RESPIRATORY: Clear to auscultation except for one tiny wheeze heard anteriorly on the left. Breath sounds equal bilaterally. No wheezes, rales, or rhonchi. Speaking in complete sentences without issues. good air movement GASTROINTESTINAL: Abdomen soft, non-tender, nondistended. No hepato-splenomegaly , or palpable masses. No guarding. MUSCULOSKELETAL: Extremities without clubbing, cyanosis, or edema. No calf tenderness. NEUROLOGICAL: Awake and alert. Motor and sensory grossly within normal limits. Five out of 5 muscle strength in all muscle groups. Normal speech. Laboratory Laboratory Tests Test 05/01/17 13:34 05/01/17 20:00 05/02/17 06:43 White Blood Count 9.6 Red Blood Count 4.40 Hemoglobin 14.6 Hematocrit 42.5 Mean Corpuscular Volume 96.7 Mean Corpuscular Hemoglobin 33.2 Mean Corpuscular Hemoglobin Concent 34.3 Red Cell Distribution Width 13.2 Platelet Count 215 Mean Platelet Volume 8.4 Neutrophils (%) (Auto) 55.8 Lymphocytes (%) (Auto) 35.6 Monocytes (%) (Auto) 4.5 Eosinophils (%) (Auto) 3.3 Basophils (%) (Auto) 0.8 Neutrophils # (Auto) 5.4 Lymphocytes # (Auto) 3.4 Monocytes # (Auto) 0.4 Eosinophils # (Auto) 0.3 Basophils # (Auto) 0.1 CBC Comment DIFF FINAL Differential Comment Prothrombin Time 11.1 Prothromb Time International Ratio 1.1 Activated Partial Thromboplast Time 26.9 Blood Urea Nitrogen 11 16 Creatinine 0.98 0.87 Random Glucose 60 78 Total Protein 7.3 Albumin 4.1 Calcium Level 8.9 8.5 Magnesium Level 2.1 Alkaline Phosphatase 61 Aspartate Amino Transf (AST/SGOT) 13 Alanine Aminotransferase (ALT/SGPT) 15 Total Bilirubin 0.5 Sodium Level 140 142 Potassium Level 3.7 4.1 Chloride Level 109 112 Carbon Dioxide Level 26.5 24.1 Anion Gap 5 6 Estimat Glomerular Filtration Rate 62 71 Total Creatine Kinase 87 Troponin I LESS THAN 0.02 LESS THAN 0.02 D-Dimer Quantitative (PE/DVT) 0.20 Thyroid Stimulating Hormone 3rd Gen 1.250 Result Diagram: 05/01/17 1334 05/02/17 0643 Imaging Last Impressions Chest X-Ray 05/01/17 1259 Signed Impressions: Service Date/Time: Monday, May 01, 2017 13:10 - CONCLUSION: No acute disease. Antonio Olson MD FACR Caprini VTE Risk Assessment Caprini VTE Risk Assessment: No/Low Risk (score <= 1) Caprini Risk Assessment Model Point Value = 1 Point Value = 2 Point Value = 3 Point Value = 5 Age 41-60 Minor surgery BMI > 25 kg/m2 Swollen legs Varicose veins or History of unexplained or recurrent spontaneous Oral contraceptives or hormone replacement Sepsis (< 1 month) Serious lung disease, including pneumonia (< 1 month) Abnormal pulmonary function Acute myocardial infarction Congestive heart failure (< 1 month) History of inflammatory bowel disease Medical patient at bed rest Age 61-74 Arthroscopic surgery Major open surgery (> 45 min) Laparoscopic surgery (> 45 min) Malignancy Confined to bed (> 72 hours) Immobilizing plaster cast Central venous access Age >= 75 History of VTE Family history of VTE Factor V Leiden Prothrombin [id number] Lupus anticoagulant Anticardiolipin antibodies Elevated serum homocysteine Heparin-induced thrombocytopenia Other congenital or acquired thrombophilia Stroke (< 1 month) Elective arthroplasty Hip, pelvis, or leg fracture Acute spinal cord injury (< 1 month) Prophylaxis Regimen Total Risk Factor Score Risk Level Prophylaxis Regimen 0-1 Low Early ambulation 2 Moderate Order ONE of the following: *Sequential Compression Device (SCD) *Heparin 5000 units SQ BID 3-4 Higher Order ONE of the following medications: *Heparin 5000 units SQ TID *Enoxaparin/Lovenox 40 mg SQ daily (WT < 150 kg, CrCl > 30 mL/min) *Enoxaparin/Lovenox 30 mg SQ daily (WT < 150 kg, CrCl > 10-29 mL/min) *Enoxaparin/Lovenox 30 mg SQ BID (WT < 150 kg, CrCl > 30 mL/min) AND/OR *Sequential Compression Device (SCD) 5 or more Highest Order ONE of the following medications: *Heparin 5000 units SQ TID (Preferred with Epidurals) *Enoxaparin/Lovenox 40 mg SQ daily (WT < 150 kg, CrCl > 30 mL/min) *Enoxaparin/Lovenox 30 mg SQ daily (WT < 150 kg, CrCl > 10-29 mL/min) *Enoxaparin/Lovenox 30 mg SQ BID (WT < 150 kg, CrCl > 30 mL/min) AND *Sequential Compression Device (SCD) Assessment and Plan Assessment and Plan Patient is a 41yo female who presented with chest pain and SOB. Admitted for symptomatic bradycardia due to recent beta cesar use. doing very well and wishes to go home today Problem List: (1) Propranolol adverse reaction ICD Codes: T44.7X5A - Adverse effect of beta-adrenoreceptor antagonists, initial encounter Plan: Patient with severe symptoms of Chest pain and SOB since starting propranolol. Pulse found to be as low at 43 while in the ED. Last dose was 2017. Received glucagon x1 in the ED. Pain control has improved with morphine. Pt in no acute respiratory distress. Blood pressure at patient's baseline. No neurological changes. Concern that propranolol may be effect the lungs more severely than the cardiac system especially since patient has a smoking history. -DDimer fine -cardiac telemetry -CXR unremarkable. -EKG unremarkable except for sinus bradycardia. However, p waves are enlarged * echo ordered for further evaluation. May be postponed to outpatient if patient as she improved significantly -Troponins negative. Low cardiac concern especially since symptoms have been present x1 week and are continuous -accuchecks due to low glucose on admission she feels back to normal today and wishes to go home. had a discussion with her about beta blockers and their potential side effects. She does not plan to take these in the future. Medications * Repeated glucagon x1. Infusion not indicated at this time. * Albuterol and Duo nebs, pt declines * Morphine for chest pain (2) Sinus bradycardia ICD Codes: R00.1 - Bradycardia, unspecified Plan: No indicated for pacer at this time. See more detailed plan above. (3) Bipolar disorder ICD Codes: F31.9 - Bipolar disorder, unspecified Status: Chronic Plan: Continue home medications, Lamictal and Klonopin. (4) Nutrition, metabolism, and development symptoms ICD Codes: R63.8 - Other symptoms and signs concerning food and fluid intake Plan: Diet: Regular Fluids: PO hydration Electrolytes: unremarkable, continue to monitor DVT PPX: lovenox GI PPX: not indicated Problem Qualifiers (1) Propranolol adverse reaction: Qualified Codes: T44.7X5A - Adverse effect of beta-adrenoreceptor antagonists, initial encounter (2) Bipolar disorder: Qualified Codes: F31.70 - Bipolar disorder, currently in remission, most recent episode unspecified Nunu López MD May 02, 2017 11:00
[2017-05-02 11:16] VITALS: PULSE 60
--- NOTE | 2017-05-02 13:40 | EKG ---
Date Performed: 05/01/2017 Time Performed: 19:01:26 PTAGE: 41 years EKG: SINUS BRADYCARDIA Since the prior tracing, there has been no significant change BORDERLINE ECG PREVIOUS TRACING : 05/01/2017 13.18 DOCTOR: Asher Casarez Interpretating Date/Time 05/02/2017 13:37:43
--- NOTE | 2017-05-02 13:50 | EKG ---
Date Performed: 05/01/2017 Time Performed: 13:18:11 PTAGE: 41 years EKG: SINUS BRADYCARDIA BORDERLINE ECG NO PREVIOUS TRACING DOCTOR: Asher Casarez Interpretating Date/Time 05/02/2017 13:44:44
[2017-05-04] MEDS ORDERED: IBUP1TAB7 PO (17:30)
== END 2017-05-02 12:19 | disposition home or self-care (01) ==
LOC: NEPC 12:42 → NEDA 15:11 → NEPFCDU 17:38
PROVIDERS: ADMIT Family Medicine; ATTEND Family Medicine
DX: T44.7X5A Adverse effect of beta-adrenoreceptor antagonists, initial encounter (principal); R00.1 Bradycardia, unspecified; R42 Dizziness and giddiness; R00.2 Palpitations; F31.9 Bipolar disorder, unspecified; G43.909 Migraine, unspecified, not intractable, without status migrainosus; F17.210 Nicotine dependence, cigarettes, uncomplicated; Z79.899 Other long term (current) drug therapy; F12.90 Cannabis use, unspecified, uncomplicated; R63.8 Other symptoms and signs concerning food and fluid intake
CPT/HCPCS: 71046; 80048; 80053; 82550; 82948; 83735; 84443; 84484; 85025; 85379; 85610; 85730; 93005; 96372; 96374; 96375; 99285; G0378; J1650; J2270; J1610